=== PATIENT | female | born 1990 | race Caucasian/White ===

== ENCOUNTER 2024-03-17 02:07 | Emergency (ER) | payer BC ==
[~2024-03-17] VITALS: Ht 167.6 cm; Wt 95.0 kg
[2024-03-17 02:28] VITALS: BP 115/65; PULSE 87; RESP 16; TEMP 98.4; O2SAT 100
== END 2024-03-17 03:05 | disposition left against medical advice (07) ==
LOC: ER 02:07
DX: R06.02 Shortness of breath (principal); Z53.21 Procedure and treatment not carried out due to patient leaving prior to being seen by health care provider